=== PATIENT | female | born 1950 | race Caucasian/White ===

== ENCOUNTER 2021-02-25 09:16 | Day surgery (SDC) | payer MEDICARE, OTHER ==
[~2021-02-25] VITALS: Wt 62.7 kg
[~2021-02-25 09:16] MED LIST: D3-5050000 UNIT; ONE DAILY FOR1 EACH; T3/T4 PO
--- NOTE | 2021-02-25 09:32 | NUR ---
02/25/21 0932 BRIGHT [address]NE 2GM IVPB HUNG
--- NOTE | 2021-02-25 13:22 | NUR ---
02/25/21 1322 Cris Smalls SEE STRIP FOR VITAL SIGNS
== END 2021-02-25 12:55 | disposition home or self-care (01) ==
LOC: ORSCSDS 09:16
PROVIDERS: Podiatrist Foot & Ankle Surgery
PROC: 0SGM04Z Fusion of Right Metatarsal-Phalangeal Joint with Internal Fixation Device, Open Approach (ICD-10-PCS; principal; 2021-02-25 10:30)
DX: M20.21 Hallux rigidus, right foot (principal); E03.9 Hypothyroidism, unspecified; Z79.899 Other long term (current) drug therapy
CPT/HCPCS: C1713; C1769; J0171; J0690; J1100; J2250; J2405; J2704; J3010

== ENCOUNTER 2021-07-04 12:48 | Day surgery (SDC) | payer MEDICARE, OTHER ==
[~2021-07-04] VITALS: Ht 154.9 cm; Wt 64.7 kg
[2021-07-04] MEDS ORDERED: THYROLAR PO (14:09)
--- NOTE | 2021-07-04 16:16 | NUR ---
07/04/21 1616 Mylene Veliz S PT. NOW VERBALIZES LEFT FOOT NUMB & FEELING LIKE CAN'T STRETCH HER FOOT.
--- NOTE | 2021-07-04 16:36 | NUR ---
07/04/21 3816 Mylene Veliz S PT. STATES "DISCOMFORT TO MIDDLE OF BALL OF FOOT TO LEFT." THIS IS ON HER LEFT FOOT. WILL MEDICATE PT. FOR PAIN. PT. RATING A "6". PT. ALSO VERBALIZES FEELING NUMBNESS TO LEFT FOOT. GOOD CAP REFILL TO LEFT TOES. PT. DRINKING & EATING A SNACK.
--- NOTE | 2021-07-05 08:07 | NUR ---
07/05/21 0807 Hien Valladares015 MG EPINEPHRINE 1MG/ML ADDED TO BUPIVICAINE FOR SOLUTION OF 1:200,000.
== END 2021-07-04 17:18 | disposition home or self-care (01) ==
LOC: ORSCSDS 12:48
PROVIDERS: Podiatrist Foot & Ankle Surgery
PROC: 0QSR04Z Reposition Left Toe Phalanx with Internal Fixation Device, Open Approach (ICD-10-PCS; principal; 2021-07-04 14:30)
PROC: 0SGJ04Z Fusion of Left Tarsal Joint with Internal Fixation Device, Open Approach (ICD-10-PCS; principal; 2021-07-04 14:30)
DX: M21.612 Bunion of left foot (principal); E03.9 Hypothyroidism, unspecified; Z79.899 Other long term (current) drug therapy
CPT/HCPCS: A9270; C1713; C1776; J0171; J0690; J1100; J2370; J2405; J2704; J3010; J7120